=== PATIENT | female | born 1950 | race Caucasian/White ===

== ENCOUNTER 2024-07-16 18:38 | Observation (INO) | payer MEDICARE, SELFPAY ==
[2024-07-16 13:33] VITALS: BMI 28.3
[2024-07-16 13:47] VITALS: BP 143/73
[2024-07-16 14:02] LABS: % Basophils 0.1 % (0-2); % Eosinophils 0.1 % (0-6); % Immature Granulocytes 0.5 % (0-0.5); % Lymphocytes 21.4 % (20.5-51.1); % Monocytes 8.5 % (1.7-9.3); % Neutrophils 69.4 % (42.2-75.2); Absolute Lymphocytes 1.8 10^3/uL (1.2-3.4); Absolute Monocytes 0.7 10^3/uL (0.1-0.6); Absolute Neutrophils 5.9 10^3/uL (1.4-6.5); Hematocrit 39.3 % (37.0-47.0); Hemoglobin 13.3 g/dL (12.0-16.0); Mean Corp Hgb Conc. 33.8 g/dL (33.0-37.0); Mean Corpuscular Hgb 29.6 pg (27.0-31.0); Mean Corpuscular Volume 87.3 fL (81.0-99.0); Mean Platelet Volume 8.6 fL (7.4-10.4); Nucleated Red Blood Cells % 0 %; Platelet Count 284 10^3/uL (130-400); Red Cell Dist. Width 13.2 % (11.5-14.5); White Blood Cell Count 8.5 10^3/uL (4.8-10.8)
[2024-07-16 14:22] LABS: ALT (SGPT) 18 U/L (0-35); AST (SGOT) 22 U/L (14-36); Albumin 4.4 g/dl (3.5-5.0); Alkaline Phosphatase 84 U/L (38-126); Blood Urea Nitrogen 11 mg/dl (7-17); Calcium 9.4 mg/dl (8.4-10.2); Carbon Dioxide 27 mmol/L (22-30); Chloride 100 mmol/L (98-107); Glucose 108 mg/dl (70-99); Potassium 4.1 mmol/L (3.5-5.1); Sodium 137 mmol/L (135-145); Total Bilirubin 0.9 mg/dl (0.2-1.3); Total Protein 6.9 g/dl (6.3-8.2); eGFR > 60.00
--- NOTE | 2024-07-16 14:39 | ED.GENMED ---
ED Provider Triage
<Cheli Ford PA-C - Last Filed: 07/16/24 14:40>
-
Patient seen by provider in Triage?: Seen in Triage
Attestation: A medical screening examination has been initiated by a qualified medical provider. Based on the assessment performed at this time, it has been determined that an emergent medical condition may exist and the patient has been informed
that further medical evaluation and possible additional diagnostic testing may be needed.
HPI: 74yoF here after a cat bite to the R hand 2 days ago. Started on Augmentin at urgent care yesterday. Here with worsening redness/swelling. Tdap UTD. Cat domesticated and UTD on rabies vaccinations. No f/c.
GENERAL: Alert , in no apparent distress
EYE: No visual abnormalities.
NECK: Trachea midline
ENT: No visible abnormalities.
LUNGS: No acute respiratory distress
NEUROLOGICAL: Alert and oriented
SKIN: Skin intact. No visible changes.
MUSCULOSKELETAL: Moving extremities normally
PSYCH: Normal and appropriate interaction.
This is a medical evaluation conducted in person to initiate diagnostic evaluation and provide initial therapeutics. Please see further documentation by the treating clinician.
CBC, CMP, and R hand x-rays ordered.
History of Present Illness
<Cheli Ford PA-C - Last Filed: 07/16/24 14:40>
General
Chief Complaint: Skin Problem
Time Seen by Provider: 07/16/24 17:30
<Kevin Lopez Jr., PA-C - Last Filed: 07/16/24 18:09>
General
Source: patient
Exam Limitations: none
Nursing documentation reviewed up to this point in time: agreed with
History of Present Illness
History of Present Illness:
74-year-old female past medical history of hypertension asthma presenting to the emergency department today with concerns of swelling worsening to the right hand with streaking down her arm after cat bite that occurred 2 days ago. Denies any
systemic symptoms fevers nausea vomiting. Was started on Augmentin yesterday took 3 total doses without any improvement. Has noticed worsening redness swelling and warmth.
Past History
<Cheli Ford PA-C - Last Filed: 07/16/24 14:40>
Past History
ED Past Medical History: Asthma, Cancer (Melanoma), GERD and HTN
ED Past Surgical History: Gynecological (Radical vulvectomy, hysterectomy) and Tonsilectomy
Social History
Tobacco: Non-smoker
Alcohol: None
Drug: None
Living: with family
Employment: Employed
Review of Systems
<Kevin Lopez Jr., PA-C - Last Filed: 07/16/24 18:09>
Review of Systems
Allergies reviewed?: Yes
All Other Systems: ROS reviewed and negative except as documented in HPI and ROS
Phy Exam
<Kevin Lopez Jr., PA-C - Last Filed: 07/16/24 18:09>
Physical Exam
Physical Exam:
GENERAL: Alert , in no apparent distress
EYE: pupils equal and reactive
NECK: Supple, no significant adenopathy.
ENT: o/p clr, mmm.
CARDIAC: Regular rate and rhythm .
LUNGS: Clear breath sounds bilaterally, no acute respiratory distress, no wheezes/rales/rhonchi
ABDOMEN: Soft, without focal tenderness, no r/g, no cvat
NEUROLOGICAL: Alert and oriented, no focal neuro deficits
SKIN: Redness swelling warmth to the right hand on the dorsal aspect at the base of the thumb including half of the dorsal aspect of the hand extending to the thenar eminence also extending past the wrist into the forearm with streaking to the
elbow. Warm and dry, skin intact.
MUSCULOSKELETAL: No edema, well perfused.
PSYCH: Normal and appropriate interaction.
Course
<Cheli Ford PA-C - Last Filed: 07/16/24 14:40>
Orders/Labs/Results
Orders:
Orders
07/16/24 13:53
Complete Blood Count/With Diff Urgent
Comprehensive Metabolic Panel Urgent
07/16/24 13:56
CR Hand - Right Min 3 Views Urgent
Comment:
Reason For Exam: cat bite
07/16/24 17:37
Splints/Slings/Crut- Treatment ONCE
Location: Right
Type of Splint: Other
Comment: thumb spica
07/16/24 17:45
Blood Culture Q30M
HELLEN Source: Blood/Venous
Specimen Description:
07/16/24 18:02
Ampicillin/Sulbactam 3 G [Unasyn] 3 gm 0.9% Sodium Chloride 100 ml [Nss] 100 ml IV NOW
07/16/24 18:15
Blood Culture Q30M
HLELEN Source: Blood/Venous
Specimen Description:
Abnormal Lab Results
07/16/24
13:53
Absolute Monos (auto) 0.7 H 10^3/uL
(0.1-0.6)
Glucose 108 H mg/dl
(70-99)
07/16/24 13:53
07/16/24 13:53
Vital Signs
Initial and Last Documented VS:
Initial Vital Signs
Temp Pulse Resp BP Pulse Ox
98.5 F 79 18 143/73 99
07/16/24 13:47 07/16/24 13:47 07/16/24 13:47 07/16/24 13:47 07/16/24 13:47
Last Documented Vital Signs
Temp Pulse Resp BP Pulse Ox
98.5 F 79 18 143/73 99
07/16/24 13:47 07/16/24 13:47 07/16/24 13:47 07/16/24 13:47 07/16/24 13:47
<Kevin Lopez Jr., BROOSK-Otis - Last Filed: 07/16/24 18:09>
Orders/Labs/Results
Orders:
Orders
07/16/24 13:53
Complete Blood Count/With Diff Urgent
Comprehensive Metabolic Panel Urgent
07/16/24 13:56
CR Hand - Right Min 3 Views Urgent
Comment:
Reason For Exam: cat bite
07/16/24 17:37
Splints/Slings/Crut- Treatment ONCE
Location: Right
Type of Splint: Other
Comment: thumb spica
07/16/24 17:45
Blood Culture Q30M
HELLEN Source: Blood/Venous
Specimen Description:
07/16/24 18:02
Ampicillin/Sulbactam 3 G [Unasyn] 3 gm 0.9% Sodium Chloride 100 ml [Nss] 100 ml IV NOW
07/16/24 18:15
Blood Culture Q30M
HELLEN Source: Blood/Venous
Specimen Description:
Abnormal Lab Results
07/16/24
13:53
Absolute Monos (auto) 0.7 H 10^3/uL
(0.1-0.6)
Glucose 108 H mg/dl
(70-99)
07/16/24 13:53
07/16/24 13:53
Vital Signs
Initial and Last Documented VS:
Initial Vital Signs
Temp Pulse Resp BP Pulse Ox
98.5 F 79 18 143/73 99
07/16/24 13:47 07/16/24 13:47 07/16/24 13:47 07/16/24 13:47 07/16/24 13:47
Last Documented Vital Signs
Temp Pulse Resp BP Pulse Ox
98.5 F 79 18 143/73 99
07/16/24 13:47 07/16/24 13:47 07/16/24 13:47 07/16/24 13:47 07/16/24 13:47
<Kevin Lopez Jr., PA-C - Last Filed: 07/16/24 18:09>
MDM/Problems Addressed
MDM/Problems Addressed:
74-year-old female presenting to the emergency department today with concerns of worsening redness swelling and warmth after cat bite 2 days ago. Started on Augmentin yesterday took a total of 3 doses with worsening symptoms today. Vital signs
upon arrival are normal afebrile no white count additional labs unremarkable. X-ray without emergent findings. Otherwise symptoms seem to be worsening concerning this plan to start IV antibiotics and admit for monitoring overnight
<Kevin Lopez Jr., PA-C - Last Filed: 07/16/24 18:09>
*Critical Care Note
Total Time (30-74mins, 75-104mins- exclusive of procedures): Not Applicable
ED Attending Note
<Cheli Ford PA-C - Last Filed: 07/16/24 14:40>
-
Portions of this chart may have been created with voice recognition software.� Occasional wrong word or��sound alike� substitutions may have occurred due to the inherent limitations of voice recognition software.
Discharge Plan
Departure
Patient Disposition: Admit
Date of Disposition: 07/16/24
Time of Disposition: 18:09
Admit to: Med/Surg
Admit to doctor: Gilda
Presentation/result/management discussed w/ accepting MD/DO: Hospitalist
Patient with high blood pressure during this ER visit?: No
Condition: Good
Covid-19: Not Applicable
Discharge Problem:
Cat bite of left hand with infection
Prescriptions:
No Action
oxybutynin chloride 10 mg tablet extended release 24hr
10 mg PO DAILY
famotidine 40 mg tablet
40 mg PO TID
cyanocobalamin (vitamin B-12) 1,000 mcg Tablet
1,000 mcg PO DAILY
ascorbic acid (vitamin C) [Vitamin C] 500 mg Tablet
500 mg PO DAILY
irbesartan 150 mg tablet
150 mg PO DAILY
fluticasone propion-salmeterol [Wixela Inhub] 100-50 mcg/dose blister with device
1 inh INHALATION R BID
albuterol sulfate 90 mcg/actuation Hfa Aerosol Inhaler
2 puff INHALATION R Q6HPRN PRN (Reason: sob/wheezing)
fluticasone propionate 50 mcg/actuation spray,suspension
2 spray INTRANASAL DAILY
metoclopramide HCl 10 mg tablet
10 mg PO BID@1700,2200
amoxicillin-pot clavulanate 875-125 mg tablet
1 tab PO BID
cholecalciferol (vitamin D3) 25 mcg (1,000 unit) Tablet
25 mcg PO DAILY
hydrochlorothiazide 12.5 mg tablet
12.5 mg PO DAILY
levocetirizine 5 mg tablet
5 mg PO HS
calcium carbonate-vitamin D3 [Calcium 600 with Vitamin D3] 600 mg-12.5 mcg (500 unit) Capsule
1 cap PO DAILY
iVizia (PF) 0.5 % Drops
1 drp OPHTHALMIC (EYE) DAILYPRN PRN (Reason: dry eyes)
Collagen-Biotin
2 gummy PO DAILY
[place] 3 2,400 mg capsule
1 cap PO DAILY
[place] 3 2,400 mg capsule
2 cap PO QPM
Referrals:
UNKNOWN - PT DOES,NOT KNOW [Family Provider] -
Discharge Date and Time
Print Language: KUWAITI
--- NOTE | 2024-07-16 18:19 | HPS.HSE ---
Family Physician
-
Family Physician: NOT KNOW UNKNOWN - PT DOES
Chief Complaint
-
cat bite
History of Present Illness
74-year-old female past medical history of melanoma, asthma, hypertension, GERD, presenting after a cat bite to the right hand 2 days ago. She was started on Augmentin in urgent care yesterday. She is having worsening redness and swelling. Tdap
is up-to-date. Cat is domesticated and up-to-date on rabies vaccinations. He denies any fevers or chills. Denies any discharge. Redness getting worse.
Drinks alcohol occasionally. Denies smoking.
Medical History
Past Medical History
Past Medical History: Reports Other (melanoma, asthma, hypertension, GERD)
Past Surgical History: Reports Other (Gynecological (Radical vulvectomy, hysterectomy) and Tonsilectomy)
Social History
Tobacco: Non-smoker
Alcohol: None
Drug: None
Family History
Family History: Not pertinent
Allergies / Home Medications
Allergies reflects when Allergies were last updated in [employer].
Home Medications with original date entered in [employer]
Allergy/Medication List:
Allergies
Allergy/AdvReac Type Severity Reaction Status Date / Time
sulfamethoxazole Allergy Itching Verified 07/16/24 13:50
[From Bactrim]
trimethoprim [From Bactrim] Allergy Itching Verified 07/16/24 13:50
Home Medications
Collagen-Biotin 2 gummy PO DAILY 07/16/24
[place] 3 1 cap PO DAILY 07/16/24
[place] 3 2 cap PO QPM 07/16/24
albuterol sulfate 90 mcg/actuation aerosol inhaler 2 puff inhalation R Q6HPRN PRN sob/wheezing 07/16/24
amoxicillin 875 mg-potassium clavulanate 125 mg tablet 1 tab PO BID 07/16/24
ascorbic acid (vitamin C) 500 mg tablet (Vitamin C) 500 mg PO DAILY 07/16/24
calcium 600 mg (as carbonate)-vitamin D3 12.5 mcg (500 unit) capsule (Calcium with Vit D3) 1 cap PO DAILY 07/16/24
cholecalciferol (vitamin D3) 25 mcg (1,000 unit) tablet 25 mcg PO DAILY 07/16/24
cyanocobalamin (vitamin B-12) 1,000 mcg tablet 1,000 mcg PO DAILY 07/16/24
famotidine 40 mg tablet 40 mg PO TID 07/16/24
fluticasone 100 mcg-salmeterol 50 mcg/dose blistr powdr for inhalation (Wixela Inhub) 1 inh inhalation R BID 07/16/24
fluticasone propionate 50 mcg/actuation nasal spray,suspension 2 spray intranasal DAILY 07/16/24
hydrochlorothiazide 12.5 mg tablet 12.5 mg PO DAILY 07/16/24
irbesartan 150 mg tablet 150 mg PO DAILY 07/16/24
levocetirizine 5 mg tablet 5 mg PO HS 07/16/24
metoclopramide HCl 10 mg tablet 10 mg PO BID@1700,2200 07/16/24
oxybutynin chloride 10 mg tablet,extended release 24 hr 10 mg PO DAILY 07/16/24
povidone (PF) 0.5 % eye drops (iVizia (PF)) 1 drp ophthalmic (eye) DAILYPRN PRN dry eyes 07/16/24
Review of Systems
-
History Source: Patient
A 12 point ROS was completed and negative except as noted: Yes
Constitutional: Reports No Symptoms
EENT: Reports No Symptoms
Respiratory: Reports No Symptoms
Cardiac: Reports No Symptoms
Abdomen/GI: Reports No Symptoms
: Reports No Symptoms
Musculoskeletal: Reports No Symptoms
Skin: Reports See HPI
Neurological: Reports No Symptoms
Endocrine: Reports No Symptoms
Hematologic/Lymphatic: Reports No Symptoms
Psych: Reports No Symptoms
Physical Exam
Vital Signs
Vital Signs
Temp Pulse Resp BP Pulse Ox
98.5 F 79 18 143/73 99
07/16/24 13:47 07/16/24 13:47 07/16/24 13:47 07/16/24 13:47 07/16/24 13:47
Physical Exam
General: Well Developed, Well Nourished and No Apparent Distress
HEENT: NormoCephalic, Moist mucous membranes and Atraumatic
Respiratory: Clear
Cardiac: S1/S2 and Regular Rhythm; No Murmur or Rub
GI: Soft, Non Tender, Non Distended and Normal Bowel Sounds; No Organomegaly
Rectal: Deferred by Provider
Musculoskeletal: No Clubbing, No Cyanosis and No Edema
Skin: Other (right hand puncture wound, surround erythema ); No Rash
Neuro: Nonfocal/grossly intact
Laboratory Results
-
07/16/24 13:53
07/16/24 13:53
Laboratory Results
Total Bilirubin 0.9 mg/dl (0.2-1.3) 07/16/24 13:53
AST 22 U/L (14-36) 07/16/24 13:53
ALT 18 U/L (0-35) 07/16/24 13:53
Alkaline Phosphatase 84 U/L (38-126) 07/16/24 13:53
Data Reviewed
-
Lab Data: Labs Reviewed by me
Old Records: Reviewed
Impression/Plan
-
IMPRESSION:
PLAN:
# Cat bite cellulitis right hand
-Hand x-ray unremarkable
-Blood cultures pending
-Unasyn
History of melanoma
Asthma
-Continue albuterol, Wixela
Essential hypertension
-Continue hydrochlorothiazide, irbesartan,
GERD
-Continue famotidine
DNR/DNI
DVT prophylaxis�heparin
Regular diet
[2024-07-16 18:50] VITALS: BP 130/55
[2024-07-16] MEDS: UNASYN IV (19:21)
[2024-07-16 21:04] VITALS: BP 146/70; BMI 27.7
[2024-07-16] MEDS: REGLAN 10 MG PO (21:32)
[2024-07-16] MEDS: HEPARIN 5000 UNITS SC (21:32)
[2024-07-16] MEDS: ZYRTEC 5 MG PO (21:32)
[2024-07-16 23:33] VITALS: BP 104/51
[2024-07-17] MEDS: ADVAIR HFA 45/21 MCG INHALER 2 PUFF INH ×2 (00:34→19:41)
--- NOTE | 2024-07-17 02:25 | PTCARENOTE ---
Received pt from ED, AAOx3, no complaints of pain. +1 edema on R hand
[2024-07-17] MEDS: UNASYN IV ×4 (03:14→20:03)
[2024-07-17 07:45] VITALS: BP 115/60
[2024-07-17] MEDS: VITAMIN D3 (cholecalciferol) 25 MCG PO (08:24)
[2024-07-17] MEDS: ORETIC 12.5 MG PO (08:24)
[2024-07-17] MEDS: AVAPRO 150 MG PO (08:24)
[2024-07-17] MEDS: VITAMIN C 500 MG PO (08:24)
[2024-07-17] MEDS: VITAMIN B-12 1000 MCG PO (08:24)
[2024-07-17] MEDS: HEPARIN 5000 UNITS SC ×2 (08:24→20:03)
[2024-07-17] MEDS: DITROPAN 5 MG PO ×2 (08:24→20:03)
[2024-07-17] MEDS: PEPCID 40 MG PO (08:24)
[2024-07-17 08:59] LABS: % Eosinophils 0.5 % (0-6); % Immature Granulocytes 0.5 % (0-0.5); % Lymphocytes 34.9 % (20.5-51.1); % Monocytes 12.5 % (1.7-9.3); % Neutrophils 51.6 % (42.2-75.2); Absolute Lymphocytes 2.1 10^3/uL (1.2-3.4); Absolute Monocytes 0.8 10^3/uL (0.1-0.6); Absolute Neutrophils 3.1 10^3/uL (1.4-6.5); Hematocrit 36.1 % (37.0-47.0); Hemoglobin 12.4 g/dL (12.0-16.0); Mean Corp Hgb Conc. 34.3 g/dL (33.0-37.0); Mean Corpuscular Volume 90.3 fL (81.0-99.0); Mean Platelet Volume 9.1 fL (7.4-10.4); Nucleated Red Blood Cells % 0 %; Platelet Count 270 10^3/uL (130-400); Red Cell Dist. Width 13.2 % (11.5-14.5)
[2024-07-17 09:19] LABS: ALT (SGPT) 16 U/L (0-35); AST (SGOT) 21 U/L (14-36); Albumin 3.6 g/dl (3.5-5.0); Alkaline Phosphatase 72 U/L (38-126); Blood Urea Nitrogen 10 mg/dl (7-17); Calcium 8.7 mg/dl (8.4-10.2); Carbon Dioxide 28 mmol/L (22-30); Chloride 103 mmol/L (98-107); Estimated Creatinine Clearance 83 ml/min; Glucose 88 mg/dl (70-99); Potassium 3.9 mmol/L (3.5-5.1); Sodium 141 mmol/L (135-145); Total Bilirubin 0.6 mg/dl (0.2-1.3); Total Protein 5.9 g/dl (6.3-8.2); eGFR > 60.00
--- NOTE | 2024-07-17 09:58 | CM ---
Met with patient at bedside; initial assessment completed
HALLMAN form explained and signed @ 904
Pharmacy verified: Wagner Calderon PA (chart updated)
Family Physician verified: Sagar Whitaker MD Family Medicine; Address: [address] [place] [address], [place] [address]; ; admissions notified to update chart
Patient reported she lives alone in a one story home; 1 step to enter; bath has stall shower w/grab bar; has a shower chair but does not use it
PLOF: reported she is independent with ambulation, stairs, and ADLs; retired
NO DME
Friend will transport home
Plan: discharge to home; no needs anticipated
[2024-07-17] MEDS: OSCAL 500 + D 500 MG PO (10:41)
--- NOTE | 2024-07-17 12:01 | W.PN.HOSP.TC ---
Today's Communication/Plan
-
Possible discharge tomorrow
Assessment / Plan
Assessment / Plan
Assessment/plan
# Cat bite cellulitis right hand
-Hand x-ray unremarkable
-Blood cultures pending
-continue Unasyn
History of melanoma
stable
Asthma
-Continue albuterol, Wixela
Essential hypertension
-Continue hydrochlorothiazide, irbesartan,
GERD
-Continue famotidine
CODE STATUS: DNR/DNI
DVT prophylaxis: Heparin
Diet: Regular diet
I spent 65 minutes giving direct care to the patient including chart review, talking to consultants, talking to treatment team, family communication.
Anticipated Discharge: Within 24 hours
Subjective/Interval History
-
Date of Service: July 17, 2024
Patient seen and examined at bedside, right hand redness and swelling improved, patient denies any chest pain or shortness of breath, no abdominal pain, no nausea, no vomiting, no diarrhea or constipation.
Objective Data
-
Labs:
Laboratory Results
07/17/24
06:36
WBC 6.0
Hgb 12.4
Hct 36.1 L
Plt Count 270
Sodium 141
Potassium 3.9
Chloride 103
Carbon Dioxide 28
BUN 10
Creatinine 0.6
Glucose 88
Calcium 8.7
Total Bilirubin 0.6
AST 21
ALT 16
Alkaline Phosphatase 72
Vital Signs:
Vital Signs
Temp Pulse Resp BP Pulse Ox
98.1 F 68 18 115/60 95
07/17/24 07:45 07/17/24 08:24 07/17/24 07:45 07/17/24 08:24 07/17/24 07:45
I&O
07/16/24 07/17/24 07/18/24
06:59 06:59 06:59
Intake Total 240 / 240
Balance 240 / 240
Physical Exam
-
General: Well Developed, Well Nourished, No Apparent Distress and Comfortable
HEENT: Normocephalic, Atraumatic, Moist Mucous Membranes, No Ptosis, PERRLA and Nose Appears Normal
Respiratory: Clear to Auscultation and Non Labored Respirations
Cardiac: Regular Rhythm and S1/S2
Breast: Deferred by me
GI: Soft, Nontender, Nondistended and Normal Bowel Sounds
Genito-urinary: No Costovertebral Tender
Musculoskeletal: No Clubbing, No Cyanosis and Edema, Right Upper Extrem (Redness and swelling right upper extremity which is improved)
Skin: Warm
Neuro: Awake, Alert, Oriented, AO x 3 and No Motor Deficits
Psych: Calm
Data Reviewed
-
Diagnostic Radiology: Image personally visualized and interpreted and Report Reviewed by me
CT Scan: Image personally visualized and interpreted and Report Reviewed by me
Ultrasound: Image personally visualized and interpreted and Report Reviewed by me
MRI: Image personally visualized and interpreted and Report Reviewed by me
Medical Tests (Nuc Med, Echo etc): Image personally visualized and interpreted and Report Reviewed by me
Labs: Labs Reviewed by me
Old Records: Reviewed
[2024-07-17 15:06] VITALS: BP 132/59
[2024-07-17] MEDS: REGLAN 10 MG PO ×2 (17:37→21:57)
[2024-07-17] MEDS: FLUSH (NSS) 2 FLUSH IV (20:04)
[2024-07-17] MEDS: ZYRTEC 5 MG PO (21:57)
[2024-07-17 23:21] VITALS: BP 132/57
[2024-07-18] MEDS: FLUSH (NSS) 2 FLUSH IV (01:44)
[2024-07-18] MEDS: UNASYN IV ×3 (01:44→13:51)
[2024-07-18 07:30] VITALS: BP 145/68
[2024-07-18] MEDS: AVAPRO 150 MG PO (08:06)
[2024-07-18] MEDS: PEPCID 40 MG PO (08:06)
[2024-07-18] MEDS: DITROPAN 5 MG PO (08:06)
[2024-07-18] MEDS: VITAMIN B-12 1000 MCG PO (08:06)
[2024-07-18] MEDS: VITAMIN C 500 MG PO (08:06)
[2024-07-18] MEDS: VITAMIN D3 (cholecalciferol) 25 MCG PO (08:06)
[2024-07-18] MEDS: OSCAL 500 + D 500 MG PO (08:07)
[2024-07-18] MEDS: HEPARIN 5000 UNITS SC (08:07)
[2024-07-18] MEDS: ORETIC 12.5 MG PO (08:07)
--- NOTE | 2024-07-18 13:06 | W.PN.HOSP.TC ---
Today's Communication/Plan
-
Discharge home today
Assessment / Plan
Assessment / Plan
Assessment/plan
# Cat bite cellulitis right hand
-Hand x-ray unremarkable
-Blood cultures pending
-continue Unasyn
07/18
Patient had loose stool today.
Will add probiotic.
Will be discharged on Augmentin
History of melanoma
stable
Asthma
-Continue albuterol, Wixela
Essential hypertension
-Continue hydrochlorothiazide, irbesartan,
GERD
-Continue famotidine
CODE STATUS: DNR/DNI
DVT prophylaxis: Heparin
Diet: Regular diet
I spent 65 minutes giving direct care to the patient including chart review, talking to consultants, talking to treatment team, family communication.
Anticipated Discharge: Today
Subjective/Interval History
-
Date of Service: July 18, 2024
Patient seen and examined at bedside, denies any chest pain or shortness of breath, no abdominal pain, no nausea, no vomiting, no diarrhea or constipation..
Improvement right hand redness and swelling.
Discharge home today
Objective Data
-
Vital Signs:
Vital Signs
Temp Pulse Resp BP Pulse Ox
97.9 F 77 16 145/68 94
07/18/24 07:30 07/18/24 07:30 07/18/24 07:30 07/18/24 07:30 07/18/24 07:30
I&O
07/17/24 07/18/24 07/19/24
06:59 06:59 06:59
Intake Total 240 / 240 1819
Balance 240 / 240 1819
Physical Exam
-
General: Well Developed, Well Nourished, No Apparent Distress and Comfortable
HEENT: Normocephalic, Atraumatic, Moist Mucous Membranes, No Ptosis, PERRLA and Nose Appears Normal
Respiratory: Clear to Auscultation and Non Labored Respirations
Cardiac: Regular Rhythm and S1/S2
Breast: Deferred by me
GI: Soft, Nontender, Nondistended and Normal Bowel Sounds
Genito-urinary: No Costovertebral Tender
Musculoskeletal: No Clubbing, No Cyanosis and Edema, Right Upper Extrem (Redness and swelling right upper extremity which is improved)
Skin: Warm
Neuro: Awake, Alert, Oriented, AO x 3 and No Motor Deficits
Psych: Calm
--- NOTE | 2024-07-18 13:10 | W.DCSUMMARY ---
Discharge Summary
Discharge Data
Date of Admission: 07/16/24
Date of Discharge: 07/18/24
-
Pending Results: No
Hospital Course
Patient admitted with cat bite cellulitis right hand
-Hand x-ray unremarkable
-Blood cultures pending
-continue Unasyn
07/18
Patient had loose stool today.
Will add probiotic.
Will be discharged on Augmentin
History of melanoma
stable
Asthma
-Continue albuterol, Wixela
Essential hypertension
-Continue hydrochlorothiazide, irbesartan,
GERD
-Continue famotidine
CODE STATUS: DNR/DNI
DVT prophylaxis: Heparin
Diet: Regular diet
Discharge Plan
-
Patient Disposition: Home (Routine Discharge)
Discharge Diagnosis/Procedures: Cellulitis secondary to cat bite
Diet: No restrictions
Activity: No restrictions
Driving Restrictions: As prior to admission
Bathing Restrictions: None
Referrals:
UNKNOWN - PT DOES,NOT KNOW [Family Provider] -
Prescriptions:
New
Probiotic Colon Care 1.5 billion cell capsule
1 cap PO DAILY Qty: 30 0RF
Continued
oxybutynin chloride 10 mg tablet extended release 24hr
10 mg PO DAILY
famotidine 40 mg tablet
40 mg PO TID
cyanocobalamin (vitamin B-12) 1,000 mcg Tablet
1,000 mcg PO DAILY
ascorbic acid (vitamin C) [Vitamin C] 500 mg Tablet
500 mg PO DAILY
irbesartan 150 mg tablet
150 mg PO DAILY
fluticasone propion-salmeterol [Wixela Inhub] 100-50 mcg/dose blister with device
1 inh INHALATION R BID
albuterol sulfate 90 mcg/actuation Hfa Aerosol Inhaler
2 puff INHALATION R Q6HPRN PRN (Reason: sob/wheezing)
fluticasone propionate 50 mcg/actuation spray,suspension
2 spray INTRANASAL DAILY
metoclopramide HCl 10 mg tablet
10 mg PO BID@1700,2200
amoxicillin-pot clavulanate 875-125 mg tablet
1 tab PO BID
cholecalciferol (vitamin D3) 25 mcg (1,000 unit) Tablet
25 mcg PO DAILY
hydrochlorothiazide 12.5 mg tablet
12.5 mg PO DAILY
levocetirizine 5 mg tablet
5 mg PO HS
calcium carbonate-vitamin D3 [Calcium 600 with Vitamin D3] 600 mg-12.5 mcg (500 unit) Capsule
1 cap PO DAILY
iVizia (PF) 0.5 % Drops
1 drp OPHTHALMIC (EYE) DAILYPRN PRN (Reason: dry eyes)
Collagen-Biotin
2 gummy PO DAILY
[place] 3 2,400 mg capsule
1 cap PO DAILY
[place] 3 2,400 mg capsule
2 cap PO QPM
Discharge Orders:
Discharge Patient (As Directed); Ordered 07/18/24
Ordered By: Cash Doshi
Discharge Date and Time
Print Language: RUSSIAN
[2024-07-18 15:08] VITALS: BP 154/68
--- NOTE | 2024-07-18 16:53 | CM ---
entered order for discharge.
She said that [place] friend will drive her home.
Offered VN she declined need.
PLAN Home no needs
== END 2024-07-18 15:43 | disposition home or self-care (01) ==
LOC: 4 EAST ACU 18:38
PROVIDERS: Emergency Medicine; ADMITTING PHYSICIAN Hospitalist; ATTENDING PHYSICIAN General Practice; EMERGENCY PHYSICIAN Emergency Medicine
DX: L03.113 Cellulitis of right upper limb (principal); S61.451A Open bite of right hand, initial encounter; M79.89 Other specified soft tissue disorders; W55.01XA Bitten by cat, initial encounter; Y93.9 Activity, unspecified; Y92.9 Unspecified place or not applicable; I10 Essential (primary) hypertension; J45.909 Unspecified asthma, uncomplicated; K21.9 Gastro-esophageal reflux disease without esophagitis; R19.7 Diarrhea, unspecified; Z66 Do not resuscitate; Z85.820 Personal history of malignant melanoma of skin; Z88.2 Allergy status to sulfonamides; Z88.1 Allergy status to other antibiotic agents; Z79.51 Long term (current) use of inhaled steroids; Z60.2 Problems related to living alone
CPT/HCPCS: 73130; 80053; 85025; 87040; 94640; 99285